=== PATIENT | female | born 1950 | race Asian ===

== ENCOUNTER 2023-08-24 05:08 | Emergency (ER) | payer MEDICARE ==
[~2023-08-24] VITALS: Ht 157.5 cm; Wt 77.3 kg
[~2023-08-24 05:08] MED LIST: ALBU18HF12 IH; AMLO-257 PO; ASPI81TA39 PO; ATOR10TA69 PO; CHOL400T56 PO; LOSA100T59 PO; METF-1211 PO; RIVA10TA PO
[2023-08-24 06:00] VITALS: BP 135/80; PULSE 90; RESP 17; TEMP 98.2
[2023-08-24] MEDS: KETOROLAC TROMETHAMINE 60 MG/2 ML VIAL IM ONE (07:03)
[2023-08-24] MEDS: METHOCARBAMOL 500 MG TABLET PO ONE (07:04)
[2023-08-24] MEDS: LIDOCAINE 5% TRANSDERMAL PATCH TD ONE (07:04)
[2023-08-24] MEDS ORDERED: PERCT PO (08:32)
[2023-08-24] MEDS ORDERED: IBUP-1492 PO (08:32)
[2023-08-24] MEDS ORDERED: METH-659 PO (08:32)
== END 2023-08-24 08:32 | disposition home or self-care (01) ==
LOC: EMS 05:09
DX: M54.50 Low back pain, unspecified (principal); I10 Essential (primary) hypertension
CPT/HCPCS: 99284; 72070; 72100; 96372; J1885